=== PATIENT | male | born 1945 | race Two or more races ===

== ENCOUNTER 2018-02-25 22:36 | Emergency (ER) | payer SELFPAY ==
[~2018-02-25] VITALS: Ht 167.6 cm; Wt 66.0 kg
--- NOTE | 2018-02-25 22:50 | NUR ---
MEDICATED FOR FEVER IN TRIAGE
[2018-02-25] MEDS ORDERED: VITAMINS (22:53)
[2018-02-25] MEDS ORDERED: CHOLESTEROL MED (22:53)
[2018-02-25] MEDS ORDERED: ACETAMINOPHEN 500 MG TABLET PO ONE (23:00)
[2018-02-25] MEDS ORDERED: IBUPROFEN 200 MG TABLET PO ONE (23:00)
--- NOTE | 2018-02-25 23:11 | NUR ---
PT PRESENTED WITH FAMILY WHO NOTES THAT PT HAS HAD A COUGH 3-4 DAYS AND FEVER STARTED THIS AM AND HAS FACIAL SWELLING. MONITOR APPLIED, CALL LIGHT WITHIN VEL LIPSCOMB AT BEDSIDE FOR EVAL
[2018-02-25 23:48] LABS: RAPID INFLUENZA A Negative (Negative); RAPID INFLUENZA B Negative (Negative)
[2018-02-25 23:55] LABS: BASOPHILS # (AUTO) 0.01 x10^3/uL (0-0.1); BASOPHILS % (AUTO) 0 % (0-1); EOSINOPHILS # (AUTO) 0.03 x10^3/uL (0-0.4); EOSINOPHILS % (AUTO) 0 % (1-7); LYMPHOCYTES # (AUTO) 0.42 x10^3/uL (1-3.4); LYMPHOCYTES % (AUTO) 4 % (22-44); MD NO; MEAN CORPUSCULAR HEMOGLOBIN 31.9 pg (27.5-34.5); MEAN CORPUSCULAR HGB CONC 34.4 g/dL (33.2-36.2); MEAN CORPUSCULAR VOLUME 92.8 fL (81-97); MEAN PLATELET VOLUME 9.1 fL (7.4-10.4); MONOCYTES # (AUTO) 0.48 x10^3/uL (0.2-0.8); MONOCYTES % (AUTO) 5 % (2-9); NEUTROPHILS # (AUTO) 8.55 x10^3/uL (1.8-6.8); NEUTROPHILS % (AUTO) 90 % (42-75); PLATELET COUNT 171 x10^3/uL (130-400); RED CELL DISTRIBUTION WIDTH 14.3 % (9.4-14.8)
[2018-02-25 23:58] LABS: ALANINE AMINOTRANSFERASE 35 U/L (12-78); ALBUMIN 2.9 g/dL (3.4-5.0); ANION GAP 9 mmol/L (5-15); CHLORIDE 99 mmol/L (98-107); CREATININE 1.23 mg/dL (0.7-1.3)
[2018-02-26] LABS: ALKALINE PHOSPHATASE 76 U/L (45-117); BILIRUBIN,TOTAL 0.9 mg/dL (0.2-1.0); TOTAL PROTEIN 6.9 g/dL (6.4-8.2)
[2018-02-26 00:01] VITALS: BP 145/76
--- NOTE | 2018-02-26 00:01 | NUR ---
PT RESING ON GURNEY, DENIES PAIN, MONITORS IN PLACE, URINE SAMPLE SENT, AWAITING LAB RESULTS
[2018-02-26 00:19] LABS: MICROSCOPIC INDICATED
[2018-02-26 00:21] LABS: CULTURE INDICATED? NO
== END 2018-02-26 01:44 | disposition home or self-care (01) ==
LOC: ED 23:49
DX: B34.9 Viral infection, unspecified (principal)
CPT/HCPCS: 36415; 71045; 80053; 81001; 83605; 84145; 85025; 86735; 87040; 87400; 99284